=== PATIENT | female | born 1980 | race Caucasian/White ===

== ENCOUNTER 2017-04-25 06:14 | Inpatient (IN) | payer BC ==
[2017-04-25] MEDS ORDERED: TERBUTALINE 1 MG/ML VIAL SQ PRN (06:32)
[2017-04-25] MEDS ORDERED: METHYLERGONOVINE 0.2 MG/ML 1 ML AMP IM PRN (06:32)
[2017-04-25] MEDS ORDERED: LIDOCAINE 1% (PF) 10 MG/ML (30 ML SDV) SQ PRN (06:32)
[2017-04-25] MEDS ORDERED: OXYTOCIN 10 UNIT/ML 1 ML VIAL IM PRN (06:32)
[2017-04-25] MEDS ORDERED: CARBOPROST TROMETHAMINE 250 MCG/ML 1 ML AMP IM PRN (06:32)
[2017-04-25] MEDS ORDERED: OXYTOCIN 20 UNITS/1000 ML NS 1,000 ML IV SCH ×2 (06:45→21:00)
[2017-04-25] MEDS ORDERED: CLINDAMYCIN 900 MG in DEXTROSE 5% IN WATER 50 ML IVPB STA ×2 (07:06)
[2017-04-25] MEDS: LACTATED RINGERS 1,000 ML IV SCH ×4 (07:15→23:08)
[2017-04-25 09:06] LABS: Basophils % (A) 1 %; CH 31.5; CHCM 33.5; Eosinophils # (A) 0.4 k/uL (0-0.7); Eosinophils % (A) 4 %; HCT 36.6 % (34.0-46.0); HDW 2.33; HGB 12.4 gm/dL (11.4-16.0); Luc # (Auto) 0.16; Luc % (Auto) 2; Lymphocytes # (A) 1.6 k/uL (1.0-4.8); Lymphocytes % (A) 19 %; MCH 32.1 pg (25.0-35.0); MCHC 33.9 g/dL (31.0-37.0); MCV 94.5 fL (80.0-100.0); Mean Platelet Volume 9.9; Monocytes # (A) 0.5 k/uL (0-1.0); Monocytes % (A) 6 %; Neutrophils # (A) 5.9 k/uL (1.3-7.7); Neutrophils % (A) 69 %; RBC 3.88 m/uL (3.80-5.40); RDW 12.4 % (11.5-15.5); WBC 8.7 k/uL (3.8-10.6)
[2017-04-25 10:29] VITALS: BMI 22.4
[2017-04-25] MEDS: CLINDAMYCIN 900 MG in DEXTROSE 5% IN WATER 50 ML IVPB SCH ×4 (16:19→23:08)
[2017-04-25] MEDS ORDERED: fentaNYL (PF) 50 MCG/ML 5 ML AMP ONE ×2 (16:21→20:16)
[2017-04-25] MEDS ORDERED: BUPIVACAINE (PF) 0.25% 30 ML VIAL ONE ×2 (16:21→20:16)
[2017-04-25] MEDS ORDERED: SODIUM CHLORIDE 0.9% 100 ML BAG ONE ×2 (16:21→20:16)
[2017-04-25] MEDS ORDERED: BUPIVACAINE (PF) 0.25% 25 ML, fentaNYL (PF) 200 MCG in SODIUM CHLORIDE 0.9% 71 ML EPIDURAL ONE (17:13)
--- NOTE | 2017-04-25 17:24 | P.HPOB ---
History of Present Illness H&P Date: 04/25/17 Chief Complaint: Intrauterine at 39-0/7 weeks, elective induction of labor. This is a very pleasant 36-year-old 1 para 0 at 39-0/7 weeks with an estimated date of delivery of 05/02/2017. She is without complaints this morning on arrival she notes good movement denies contractions, loss of fluid, vaginal bleeding. Next On blood work she had a blood type of A+, rubella immune, hepatitis B surface antigen negative, group beta strep positive, HIV negative. Past Medical History Additional Past Medical History / Comment(s): lupus-no meds since 27 yo. LEEP procedure. History of Any Multi-Drug Resistant Organisms: None Reported Past Surgical History: Breast Surgery Additional Past Surgical History / Comment(s): breast augmentation 2008, wisdom teeth 1998, LEEP procedure 2003. Past Psychological History: No Psychological Hx Reported Smoking Status: Never smoker Past Alcohol Use History: None Reported Additional Past Alcohol Use History / Comment(s): none during Past Drug Use History: None Reported - Past Family History Father Family Medical History: Hypertension, Rheumatoid Arthritis (RA) Mother Family Medical History: Hypertension Medications and Allergies Home Medications Medication Instructions Recorded Confirmed Type Vit,Calc78/Iron/Folic 1 each PO 04/25/17 History [Pretab 29 mg-1 mg Tablet] Allergies Allergy/AdvReac Type Severity Reaction Status Date / Time Sulfa (Sulfonamide AdvReac Rash/Hives Verified 04/25/17 06:31 Antibiotics) Exam Osteopathic Statement: *. No significant issues noted on an osteopathic structural exam other than those noted in the History and Physical/Consult. - Vital Signs Vital signs: Vital Signs Temp Pulse Resp BP 04/25/17 08:15 96.1 F L 77 18 109/68 Intake and Output 04/25/17 04/25/17 04/25/17 06:59 14:59 22:59 Other: Weight 73.028 kg 73.028 kg Patient Weight 04/26/17 06:59 Weight 73.028 kg - OBG Physical Exam Abdomen: Gravid Cervix: 1-2/80/-2 Uterus: enlarged Results Result Diagrams: 04/25/17 07:15 Assessment and Plan (1) Term Narrative/Plan: Patient is admitted to labor and delivery for Pitocin augmentation of labor. She will be treated for her group beta strep positive with clindamycin. Anticipate spontaneous vaginal delivery later today Status: Acute (2) Positive GBS test Status: Acute
[2017-04-25] MEDS ORDERED: CITRIC ACID-SODIUM CITRATE 15 ML CUP PO ONE (20:05)
[2017-04-25] MEDS ORDERED: MORPHINE SULFATE (PF) 0.3 MG/0.3 ML SYR ONE (20:16)
[2017-04-25] MEDS ORDERED: KETOROLAC 30 MG/ML 1 ML VIAL ONE (20:16)
[2017-04-25] MEDS ORDERED: ONDANSETRON 4 MG/2 ML VIAL ONE (20:16)
[2017-04-25] MEDS ORDERED: ONDANSETRON 4 MG/2 ML VIAL IVP PRN ×2 (20:31→20:57)
[2017-04-25] MEDS ORDERED: KETOROLAC 30 MG/ML 1 ML VIAL IVP PRN (20:31)
[2017-04-25] MEDS ORDERED: NALOXONE 0.4 MG/ML 1 ML VIAL IV PRN ×2 (20:31→20:57)
[2017-04-25] MEDS ORDERED: MORPHINE SULFATE 4 MG/ML SYRINGE IVP PRN (20:31)
[2017-04-25] MEDS ORDERED: diphenhydrAMINE 50 MG/ML 1 ML VIAL IVP PRN ×3 (20:31→20:57)
[2017-04-25] MEDS ORDERED: METOCLOPRAMIDE 5 MG/ML 2 ML VIAL IVP PRN (20:57)
[2017-04-25] MEDS ORDERED: SIMETHICONE 80 MG CHEWABLE PO PRN (20:57)
[2017-04-25] MEDS ORDERED: Acetaminophen-Codeine 300-30mg TAB PO PRN (20:57)
[2017-04-25] MEDS ORDERED: diphenhydrAMINE 25 MG CAP PO PRN (20:57)
[2017-04-25] MEDS ORDERED: ZOLPIDEM 5 MG TAB PO PRN (20:57)
[2017-04-25] MEDS ORDERED: diphenhydrAMINE 50 MG CAP PO PRN (20:57)
[2017-04-25] MEDS ORDERED: ACETAMINOPHEN TAB 325 MG TAB PO PRN (20:57)
[2017-04-25] MEDS ORDERED: LANOLIN CREAM 5 GM TUBE TOPICAL PRN (20:57)
--- NOTE | 2017-04-25 20:57 | P.OP ---
Date of Procedure: 04/25/17 Preoperative Diagnosis: IUP at 39 and 0, arrest of first stage of labor. Postoperative Diagnosis: Same Procedure(s) Performed: Primary low transverse section Anesthesia: epidural Surgeon: Katelyn Wick [employer] Clerk #1: Valentine Daniels Estimated Blood Loss (ml): 500 IV fluids (ml): 700 Urine output (ml): 100 Pathology: other (Placenta) Condition: stable Disposition: observation Indications for Procedure: This is a 36-year-old 1 para 0 at 39-0/7 weeks that presented for elective induction of labor this morning. At that time she was 1-2 cm 80% effaced at a -1 station. She progressed slowly throughout the day at 2:30 PM she was noted to be 3-4 cm dilated at 8 PM she had made minimal change to 4 cm decision at that time was made to take the patient for primary low transverse section. Risks of the procedure were discussed with the patient and patient's . Questions were answered risks were reviewed including but not limited to infection, bleeding, damage to bladder, bowel, ureteric/ injury. Patient wished to proceed informed consent was obtained. Operative Findings: Normal uterus tubes and ovaries were appreciated Description of Procedure: Patient was taken to the operating room where epidural anesthesia was found to be adequate she was then prepped and draped in the normal sterile fashion in the dorsal supine position. A Morris catheter had been placed prior to entry into the operating suite. A Pfannenstiel skin incision was then made with the scalpel and carried through to the underlying layer of fascia. The fascial segment incised in the midline and the incision was then extended laterally the superior aspect of the fascial incision was then grasped with oliver clamps, elevated and underlying rectus muscles dissected off sharply. The inferior aspect of fascial incision was grasped with Oliver clamps, elevated and the rectus muscle was dissected off sharply once again. The peritoneum was then identified by the rectus muscles and entered. The incision was then extended superiorly and inferiorly with good visualization of the bladder. The bladder blade was then inserted and a bladder flap was created using sharp and blunt dissection. The bladder blade was then reinserted, and a hysterotomy incision was made. The infant was then delivered atraumatically and handed off to waiting RN. The placenta was then delivered manually and the uterus was cleared of all clots and debris. The hysterotomy incision was then closed with 0 Vicryl in a running locked fashion from one lateral edge to the other lateral edge. A second suture was then used to obtain hemostasis. A small amount of bleeding was noted on the left-hand side of the uterine incision therefore 2 [id number] sutures were used to obtain hemostasis. The uterus was then returned to the abdomen, the gutters were cleared of all clots and debris. Once again the hysterotomy incision was inspected hemostasis was appreciated. The fascial incision was then closed with 0 Vicryl from one lateral edge to the other lateral edge. The subcutaneous tissue was then inspected hemostasis was appreciated, and the skin was closed with 4-0 Vicryl in a subcuticular fashion. Steri-Strips and sterile dressings were applied as needed. All counts were correct 2 patient tolerated procedure well and was taken back to her birthing suite in stable condition
[2017-04-26] MEDS ORDERED: ceFAZolin 2 GM in SODIUM CHLORIDE 0.9% 100 ML IVPB SCH ×2
[2017-04-26] MEDS: IBUPROFEN 600 MG TAB PO SCH ×5 (04:53→23:46)
[2017-04-26] MEDS: LACTATED RINGERS 1,000 ML IV SCH (06:02)
--- NOTE | 2017-04-26 07:09 | P.PN ---
Progress Note - Text Postoperative day 1 status post section under epidural anesthesia, and epidural morphine given for postoperative analgesia, patient doing well, there is no anesthesia related complications, further management as per her primary team
[2017-04-26 07:19] LABS: Basophils % (A) 0 %; CH 31.7; CHCM 33.9; Eosinophils # (A) 0.1 k/uL (0-0.7); Eosinophils % (A) 1 %; HCT 32.9 % (34.0-46.0); HDW 2.31; HGB 10.9 gm/dL (11.4-16.0); Luc % (Auto) 1; Lymphocytes # (A) 1.2 k/uL (1.0-4.8); Lymphocytes % (A) 11 %; MCH 31.2 pg (25.0-35.0); MCHC 33.3 g/dL (31.0-37.0); MCV 93.9 fL (80.0-100.0); Mean Platelet Volume 8.9; Monocytes # (A) 0.5 k/uL (0-1.0); Monocytes % (A) 5 %; Neutrophils # (A) 8.4 k/uL (1.3-7.7); Neutrophils % (A) 82 %; RDW 12.5 % (11.5-15.5); WBC 10.3 k/uL (3.8-10.6); WBC (Perox) 10.31
--- NOTE | 2017-04-26 12:19 | P.PNOBGPC ---
Subjective - Subjective Principal diagnosis: Status post primary low-transverse section Patient reports: Reports appetite normal, Reports voiding normally, Reports pain well controlled, Reports ambulating normally : doing well Objective - Vital Signs Latest vital signs: Vital Signs Temp Pulse Resp BP Pulse Ox 04/26/17 12:00 98.0 F 60 18 107/58 99 04/26/17 10:00 66 20 04/26/17 08:00 97.9 F 65 18 118/70 97 04/26/17 06:00 16 04/26/17 04:00 98.2 F 72 16 110/63 98 04/26/17 02:00 16 98 04/25/17 23:30 97.5 F L 70 14 110/70 99 04/25/17 22:50 97.5 F L 61 14 130/71 100 04/25/17 22:20 97.3 F L 64 16 136/86 100 04/25/17 21:50 97.6 F 60 16 125/74 99 04/25/17 21:35 97.5 F L 68 14 107/65 98 04/25/17 21:31 14 97 04/25/17 21:20 64 14 108/75 98 04/25/17 21:05 59 L 16 102/68 98 04/25/17 20:50 97.0 F L 61 16 101/59 97 Intake and Output 04/25/17 04/26/17 04/26/17 22:59 06:59 14:59 Intake Total 700 1500 Output Total 900 1100 800 Balance -200 400 -800 Intake: IV 700 Intake, IV Titration 1500 Amount Lactated Ringers 1,000 ml 800 @ 125 mls/hr IV .Q8H ZORA Rx#:[id number] Lactated Ringers 1,000 ml 700 @ 125 mls/hr IV .Q8H ZORA Rx#:[id number] Output: Urine 400 1100 800 Uretheral (Morris) 800 Emesis 500 Other: Voiding Method Indwelling Catheter Indwelling Catheter # Voids 1 - Exam Lungs: bilateral: normal Extremities: Present: normal Abdomen: Present: normal appearance Incision: Present: normal, dry, intact Uterus: Present: firm - Labs Labs: Abnormal Lab Results - Last 24 Hours (Table) 04/26/17 Range/Units 06:54 RBC 3.50 L (3.80-5.40) m/uL Hgb 10.9 L (11.4-16.0) gm/dL Hct 32.9 L (34.0-46.0) % Neutrophils # 8.4 H (1.3-7.7) k/uL Assessment and Plan (1) Term Narrative/Plan: Patient continues to do well on postoperative day 1 from primary low transverse section. She is ambulating and voiding without difficulty tolerating a regular diet and breast-feeding with some difficulty. We will continue current plan and plan for discharge tomorrow Current Visit: Yes Status: Acute Code(s): Z34.80 - ENCOUNTER FOR SUPRVSN OF NORMAL , UNSP TRIMESTER SNOMED Code(s): 78680155 (2) Positive GBS test Current Visit: Yes Status: Acute Code(s): B95.1 - STREPTOCOCCUS, GROUP B, CAUSING DISEASES CL[facility]SD [facility] SNOMED Code(s): 9697925468874
[2017-04-26] MEDS: SENNOSIDES-DOCUSATE SODIUM 1 EACH TAB PO SCH ×2 (12:43→20:06)
[2017-04-26] MEDS: Acetaminophen-Codeine 300-30mg TAB PO PRN (20:05)
[2017-04-27] MEDS: Acetaminophen-Codeine 300-30mg TAB PO PRN ×2 (05:31→13:37)
--- NOTE | 2017-04-27 08:42 | P.PNOBGPC ---
Subjective - Subjective Principal diagnosis: Postop day 2 status post primary low transverse section Interval history: Wendy has done well since her section, she is ambulatory and voiding without difficulty. She is tolerating a regular diet without nausea or vomiting. She denies concerns with breast-feeding at this time, her lochia is minimal. Her pain is controlled with Motrin and Tylenol No. 3 at this time. She is thinking she would like to go home today Patient reports: Reports appetite normal, Reports voiding normally, Reports pain well controlled, Reports ambulating normally [place]: doing well Objective - Vital Signs Latest vital signs: Vital Signs Temp Pulse Resp BP Pulse Ox 04/27/17 00:00 98.0 F 62 16 101/65 98 04/26/17 20:00 97.9 F 62 16 101/65 98 04/26/17 18:00 18 04/26/17 16:00 98.5 F 74 16 104/67 99 04/26/17 14:00 20 04/26/17 12:00 98.0 F 60 18 107/58 99 04/26/17 10:00 66 20 - Exam Lungs: bilateral: normal Extremities: Present: normal Abdomen: Present: normal appearance Incision: Present: normal, dry, intact Uterus: Present: firm Assessment and Plan (1) Term Narrative/Plan: We'll plan for discharge today. Pressure will be given for Motrin and Tylenol No. 3. Discharge instructions are reviewed with the patient and she will follow -up in 1-2 weeks for incision check. Current Visit: Yes Status: Acute Code(s): Z34.80 - ENCOUNTER FOR SUPRVSN OF NORMAL , UNSP TRIMESTER SNOMED Code(s): 73052277 (2) Positive GBS test Current Visit: Yes Status: Acute Code(s): B95.1 - STREPTOCOCCUS, GROUP B, CAUSING DISEASES CLASSD [facility] SNOMED Code(s): 8222952223287
--- NOTE | 2017-04-27 08:45 | P.DS ---
Providers Date of admission: 04/25/17 06:14 Expected date of discharge: 04/27/17 Attending physician: Katelyn Wick Primary care physician: Stated None - Discharge Diagnosis(es) (1) Term Current Visit: Yes Status: Acute (2) Positive GBS test Current Visit: Yes Status: Acute Hospital Course: This is a very pleasant 36-year-old 1 para 0 that presented to labor and delivery on 04 25 for elective induction of labor. She progressed very slowly had arrest of first stage of labor and was taken for a primary low transverse section. For further details and operative report please see the operative report. She had delivery of a viable female infant weight of 6 lbs. 15 oz. at 2024. Apgars of 8 and 9 at one and 5 minutes respectively. Postoperatively patient has done well. She is ambulating and voiding without difficulty. She is tolerating a regular diet without nausea or vomiting. Her pain is well-controlled with oral medications. Her lochia is minimal and she is breast-feeding without difficulty. Plan - Discharge Summary New Discharge Prescriptions: No Action Vit,Calc78/Iron/Folic [Pretab 29 mg-1 mg Tablet] 1 each PO Discharge Medication List Vit,Calc78/Iron/Folic [Pretab 29 mg-1 mg Tablet] 1 each PO 04/25/17 [ History] Follow up Appointment(s)/Referral(s): Katelyn Wick DO [Doctor of Osteopathic Medicine] - 2 Weeks Patient Instructions/Handouts: (DC) Discharge Disposition: HOME SELF-CARE
[2017-04-27] MEDS: SENNOSIDES-DOCUSATE SODIUM 1 EACH TAB PO SCH (09:07)
[2017-04-27] MEDS: IBUPROFEN 600 MG TAB PO SCH ×2 (09:07→14:49)
[2017-04-27 09:31] VITALS: BP 106/70; PULSE 58; RESP 18; TEMP 97.4
== END 2017-04-27 14:51 | disposition home or self-care (01) | DRG 766 ==
LOC: 4FBP 06:14
PROVIDERS: ADMIT Obstetrics & Gynecology Obstetrics; ATTEND Obstetrics & Gynecology Obstetrics
PROC: 10907ZC Drainage of Amniotic Fluid, Therapeutic from Products of Conception, Via Natural or Artificial Opening (ICD-10-PCS; principal; 2017-04-25 20:20)
PROC: 3E033VJ Introduction of Other Hormone into Peripheral Vein, Percutaneous Approach (ICD-10-PCS; principal; 2017-04-25 20:20)
PROC: 10D00Z1 Extraction of Products of Conception, Low, Open Approach (ICD-10-PCS; principal; 2017-04-25 20:20)
DX: O62.0 Primary inadequate contractions (principal); O99.824 Streptococcus B carrier state complicating childbirth; Z37.0 Single live birth; Z3A.39 39 weeks gestation of pregnancy; Z88.2 Allergy status to sulfonamides
CPT/HCPCS: 85025; 88307